=== PATIENT | male | born 1995 | race Caucasian/White ===

== ENCOUNTER 2022-02-23 14:05 | Emergency (ER) | payer SELFPAY ==
[~2022-02-23] VITALS: Ht 182.9 cm; Wt 81.6 kg
--- NOTE | 2022-02-23 14:30 | NUR ---
BIBS W/ C/O NAUSEA AND VOMITING, UNABLLE TO KEEP FOOD/FLUIDS. FEVER, CHILLS X 5 DAYS. TO ER BED 5.
--- NOTE | 2022-02-23 14:30 | NUR ---
Note undone in EDM - 02/23/22 at 1809 by NURISO BIBS C/O NAUSEA AND VOMITING, UNABLLE TO KEEP FOOD/FLUIDS. FEVER, CHILLS X 5 DAYS. AMBULATORY, PLACED IN BED, BREATHING EVEN NON LABORED SATURATING AT 98%RA.
[2022-02-23] MEDS ORDERED: IV NS 0.9% 1,000 ML IV ONE (15:30)
[2022-02-23] MEDS ORDERED: ONDANSETRON HCL/PF - ER 4 MG/2 ML VIAL IV ONE (15:30)
[2022-02-23] MEDS ORDERED: FAMOTIDINE/PF INJ 20 MG/2 ML VIAL IV ONE ×2 (15:30→15:41)
[2022-02-23] MEDS ORDERED: ONDANSETRON HCL/PF 4 MG/2 ML VIAL ONE (15:41)
[2022-02-23 16:11] LABS: BASOPHILS % (AUTO) 0.1 % (0.0-2.0); EOSINOPHILS % (AUTO) 0.5 % (0.0-6.0); HEMATOCRIT 51 % (39-51); HEMOGLOBIN 16.8 g/dL (13.5-17.5); LYMPHOCYTES # (AUTO) 0.7 K/uL (0.8-4.8); LYMPHOCYTES % (AUTO) 22.8 % (20.0-44.0); MEAN CORPUSCULAR HGB CONC 33 g/dl (31.0-36.0); MEAN CORPUSCULAR VOLUME 95 fL (80-96); MONOCYTES # (AUTO) 0.4 K/uL (0.1-1.30); MONOCYTES % (AUTO) 12.1 % (2.0-12.0); NEUTROPHILS % (AUTO) 64.5 % (43.0-81.0); PLATELET COUNT (AUTO) 124 K/uL (150-450); RED BLOOD CELL COUNT(AUTO) 5.34 MIL/uL (4.5-6.0); WHITE BLOOD COUNT (AUTO) 3.1 K/uL (4.3-11.0)
[2022-02-23] MEDS ORDERED: FAMOTIDINE (20 MG) 20 MG TABLET ONE (16:15)
[2022-02-23] MEDS ORDERED: ONDANSETRON 4 MG TAB.RAPDIS ONE (16:16)
[2022-02-23] MEDS ORDERED: ONDANSETRON 4 MG TAB.RAPDIS SL ONE (16:30)
[2022-02-23] MEDS ORDERED: FAMOTIDINE (20 MG) 20 MG TABLET PO ONE (16:30)
[2022-02-23 16:37] LABS: ALBUMIN 3.8 g/dL (3.4-5.0); BILIRUBIN,TOTAL 0.3 mg/dL (0.2-1.0); CALCIUM, SERUM 8.3 mg/dL (8.5-10.1); POTASSIUM 3.9 mmol/L (3.5-5.1); TOTAL PROTEIN, SERUM 7.2 g/dL (6.4-8.2)
--- NOTE | 2022-02-23 18:00 | NUR ---
IV removed. Catheter intact and site benign. Pressure and 4x4 applied to site. No bleeding noted.
[2022-02-23] MEDS ORDERED: ONDA4TAB11 PO (18:01)
--- NOTE | 2022-02-23 18:07 | NUR ---
Patient discharged to home in stable condition. Written and verbal after care instructions given. Patient verbalizes understanding of instruction.
[2022-02-23 18:09] VITALS: BP 120/60
== END 2022-02-23 18:06 | disposition home or self-care (01) ==
LOC: ER 14:12
DX: B34.9 Viral infection, unspecified (principal); R11.2 Nausea with vomiting, unspecified; F32.A Depression, unspecified; F41.9 Anxiety disorder, unspecified; Z79.899 Other long term (current) drug therapy
CPT/HCPCS: 99284; 71045; 85025; 83690; 36415; 80053; Q0162; J2405; J3490